=== PATIENT | male | born 1960 | race Caucasian/White ===

== ENCOUNTER 2024-06-16 21:24 | Inpatient (IN) | payer MEDICARE, MEDICAID ==
[~2024-06-16] VITALS: Ht 172.7 cm; Wt 90.9 kg
[2024-06-16 22:00] LABS: Basophils # (auto) 0.1 10 ^3/uL (0-0.2); Basophils % (auto) 0.6 % (0.0-2.0); Eosinophils # (auto) 0.1 10 ^3/uL (0-0.8); Eosinophils % (auto) 0.8 % (0.0-7.0); Hematocrit 48.9 % (41.0-53.0); Hemoglobin 16.6 g/dL (13.5-17.5); Lymphocytes # (auto) 1.7 10 ^3/uL (0.4-5.4); Lymphocytes % (auto) 19.2 % (10.0-50.0); Mean Corpuscular Hemoglobin 31.9 pg (28.0-32.0); Mean Corpuscular Hgb Conc. 33.9 g/dL (32.0-36.0); Mean Corpuscular Volume 93.9 fL (80.0-100.0); Monocytes % (auto) 11.1 % (0.0-12.0); Neutrophils # (auto) 6.2 10 ^3/uL (1.6-8.6); Neutrophils % (auto) 68.3 % (37.0-80.0); Nucleated Red Blood Cells % 0.1 %; Platelet Count (auto) 239 10^3/uL (140-450); Red Blood Cells 5.21 10^6/uL (4.5-5.90); Red Cell Distribution Width 13.6 % (11.8-14.3); White Blood Cell 9.1 10^3/uL (4.4-10.8)
[2024-06-16 22:10] LABS: Potassium 4.2 mmol/L (3.5-5.1); Sodium 141 mmol/L (136-145)
[2024-06-16 22:11] LABS: Anion Gap 9 (5-15); Calcium 9.9 mg/dL (8.7-10.4); Carbon Dioxide 23 mmol/L (20-31)
[2024-06-16 22:16] LABS: BUN/Creatinine Ratio 18.2 (10.0-20.0); Blood Urea Nitrogen 18 mg/dL (9-23)
[2024-06-16 22:19] LABS: Chloride 109 mmol/L (98-107); Glucose 121 mg/dL (74-106)
[2024-06-16] MEDS: IPRATROPIUM BROM 0.5 MG/2.5ML INH SOL NEB ONE (22:33)
[2024-06-16] MEDS: ALBUTEROL SULF 2.5 MG/0.5ML(0.5%) NEB SOLN NEB ONE (22:33)
--- NOTE | 2024-06-16 22:55 | ECG ---
[facility] Test Date: 2024-06-16 Test Time: 21:24:52 Pat Name: JARETH WELLS Department: ER Room: [address] [place] [address] Gender: M Etcher Aircraft: ER : 1960 Requested By: ELISEO WEAVER Order Number: [id number] Reading MD: Willis Quinonez Measurements Intervals [place] Rate: 106 P: 0 MD: 0 QRS: -16 QRSD: 85 T: 62 QT: 336 QTc: 447 Interpretive Statements Sinus tachycardia Borderline left axis deviation Anterior infarct, old Baseline wander in lead(s) V3,V4 Electronically Signed On 06-17-2024 10:27:05 PST by Willis Quinonez Please click the below link to view image of tracing.
--- NOTE | 2024-06-16 22:57 | DVH ---
CHEST RADIOGRAPH Indication: sob Technique: Single frontal view of the chest was obtained Comparison: None FINDINGS: Lines and Tubes: None Lungs: No focal consolidation. Pleura: No effusion. No pneumothorax. Cardiomediastinal contours: Unremarkable Bones: No acute osseous abnormality. IMPRESSION: 1. No acute cardiopulmonary disease.
[2024-06-16 23:00] VITALS: PULSE 102; RESP 16; O2SAT 96
[2024-06-16] MEDS: methylPREDNISolone SOD SUCC 125 MG/2 ML VL IV ONE (23:21)
--- NOTE | 2024-06-17 | ED.PDOC ---
SOB-HPI HPI Comments 65 year old male brought in by EMS presents to the ED with a chief complaint of shortness of breath onset today. Patient states he has been experiencing productive cough, fever, congestion for the past 2 months. He noticed shortness of breath was worse today, used inhaler, did not improve symptoms. Upon EMS arrival, O2 sat was 92%, DuoNeb treatment was given and O2 sat did not improve. He was place on 4L NC and O2 sat improved to 94%. Past medical history of Asthma. Denies chest pain, headache, dizziness, abdominal pain, nausea, vomiting, dysuria. No other symptoms or modifying factors present at this time. Chief Complaint: Shortness of Breath Time Seen by MD: 23:52 Reviewed notes: Medications, Allergies Information Source: Patient, Emergency Med Personnel Mode of Arrival: EMS Severity: Moderate Timing: Hours Duration: Since onset Context: At Rest PE Risk Factors: None History of: Asthma Prehospital treatment: Oxygen, Treatment Associated Signs and Symptoms: Fever, Cough, Nasal Congestion Radiation: No Radiation If cough with SOB: Productive Past Medical History PAST MEDICAL HISTORY: Asthma Surgical History: Denies all surgeries Family History Family History: Unknown Social History Smoker: Cigarettes Alcohol: Denies ETOH Use Drugs: Denies Drug Use Lives In: Home Constitutional: reports: fever; denies: chills, diaphoresis, fatigue, malaise, sweats, weakness, others EENTM: reports: nose congestion; denies: blurred vision, double vision, ear bleeding, ear discharge, ear drainage, ear pain, ear ringing, eye pain, eye redness, hearing loss, mouth pain, mouth swelling, nasal discharge, nose bleeding, nose pain, photophobia, tearing, throat pain, throat swelling, voice changes, others Respiratory: reports: cough, shortness of breath; denies: hemoptysis, orthopnea, SOB at rest, SOB with excertion, stridor, wheezing, others Cardiovascular: denies: chest pain, dizzy spells, diaphoresis, Dyspnea on exertion, edema, irregular heart beat, left arm pain, lightheadedness, palpitations, PND, syncope, others Gastrointestinal: denies: abdomen distended, abdominal pain, blood streaked bowels, constipated, diarrhea, dysphagia, difficulty swallowing, hematemesis, melena, nausea, poor appetite, poor fluid intake, rectal bleeding, rectal pain, vomiting, others Genitourinary: denies: burning, dysuria, flank pain, frequency, hematuria, incontinence, penile discharge, penile sore, pain, testicle pain, testicle swelling, urgency, others Neurological: denies: dizziness, fainting, headache, left sided numbness, left sided weakness, numbness, paresthesia, pre-existing deficit, right sided numbness, right sided weakness, seizure, speech problems, tingling, tremors, weakness, others Musculoskeletal: denies: back pain, gout, joint pain, joint swelling, muscle pain, muscle stiffness, neck pain, others Integumetry: denies: bruises, change in color, change in hair/nails, dryness, laceration, lesions, lumps, rash, wounds, others Allergic/Immunocompromised: denies: Difficulty Healing, Frequent Infections, Hives, Itching, others Hematologic/Lymphatic: denies: anemia, blood clots, easy bleeding, easy bruising, swollen glands, others Endocrine: denies: excessive hunger, excessive sweating, excessive thirst, excessive urination, flushing, intolerance to cold, intolerance to heat, unexplained weight gain, unexplained weight loss, others Psychiatric: denies: anxiety, bipolar disorder, depression, hopeless, panic disorder, schizophrenia, sleepless, suicidal, others All Other Systems: Reviewed and Negative Physical Exam General Appearance: Mild Distress HEENT: Other (Unremarkable) Neck: Full Range of Motion, Normal Inspection Respiratory: Chest Non-Tender, No Accessory Muscle Use, Respiratory Distress (Mild), Wheezing Cardiovascular: No Edema, No JVD, Tachycardia Breast Exam: Deferred Gastrointestinal: Non Tender, Soft Genitalia: Deferred Pelvic: Deferred Rectal: Deferred Extremities: Normal inspection, Normal range of motion, Non-tender, No pedal edema Neurologic: Alert (x4), Normal Affect, Normal Mood, Other (Moves all extremities with adequate strength and tone. No gross focal deficit.) Cerebellar Function: NOT DONE Reflexes: NOT DONE Skin: Dry, Normal Color, Warm Lymphatic: NOT DONE EKG EKG : Comments Sinus tach, rate 106, normal intervals, normal axis, possible old anteroseptal infarct, nonspecific T change. Was a procedure done? Was a procedure done?: No Differential Dx Differential Diagnosis: Asthma, Bronchitis, CHF, COPD, Dysrhythmia, Hyperventilation, Pneumonia, Pulmonary Embolism, URI X-Ray, Labs, Meds, VS Vital Signs Date Time Temp Pulse Resp B/P (MAP) Pulse Ox O2 Delivery O2 Flow Rate FiO2 06/17/24 00:00 102 27 118/64 (82) 95 06/17/24 00:00 104 06/16/24 22:33 98 Nasal Cannula* 4 36 06/16/24 22:33 18 97 Nasal Cannula* 4 36 06/16/24 22:15 111 16 108/61 (77) 93 06/16/24 21:31 98.9 108 24 157/94 (115) 94 06/16/24 21:24 106 Lab Test 06/16/24 22:40 06/16/24 21:45 Range/Units Troponin I High Sensitivity 6 5 </=54 ng/L White Blood Count 9.1 4.4-10.8 10^3/uL Red Blood Count 5.21 4.5-5.90 10^6/uL Hemoglobin 16.6 13.5-17.5 g/dL Hematocrit 48.9 41.0-53.0 % Mean Corpuscular Volume 93.9 80.0-100.0 fL Mean Corpuscular Hemoglobin 31.9 28.0-32.0 pg Mean Corpuscular Hemoglobin Concent 33.9 32.0-36.0 g/dL Red Cell Distribution Width 13.6 11.8-14.3 % Platelet Count 239 140-450 10^3/uL Mean Platelet Volume 8.2 6.9-10.8 fL Neutrophils (%) (Auto) 68.3 37.0-80.0 % Lymphocytes (%) (Auto) 19.2 10.0-50.0 % Monocytes (%) (Auto) 11.1 0.0-12.0 % Eosinophils (%) (Auto) 0.8 0.0-7.0 % Basophils (%) (Auto) 0.6 0.0-2.0 % Neutrophils # (Auto) 6.2 1.6-8.6 10 ^3/uL Lymphocytes # (Auto) 1.7 0.4-5.4 10 ^3/uL Monocytes # (Auto) 1.0 0-1.3 10 ^3/uL Eosinophils # (Auto) 0.1 0-0.8 10 ^3/uL Basophils # (Auto) 0.1 0-0.2 10 ^3/uL Nucleated Red Blood Cells 0.1 % D-Dimer, Quantitative 0.65 H 0.0-0.49 mg/L FEU Sodium Level 141 136-145 mmol/L Potassium Level 4.2 3.5-5.1 mmol/L Chloride Level 109 H 98-107 mmol/L Carbon Dioxide Level 23 20-31 mmol/L Anion Gap 9 5-15 Blood Urea Nitrogen 18 9-23 mg/dL Creatinine 0.99 0.700-1.30 mg/dL Glomerular Filtration Rate Calc 84 >90 mL/min BUN/Creatinine Ratio 18.2 10.0-20.0 Serum Glucose 121 H 74-106 mg/dL Lactic Acid Level 1.2 0.4-2.0 mmol/L Calcium Level 9.9 8.7-10.4 mg/dL B-Type Natriuretic Peptide 19.58 0-100 pg/mL Current Medications Medications (Trade) Dose Ordered Sig/Olivia Route Start Time Stop Time Status Last Admin Albuterol (Ventolin Medneb) 5 mg ONCE ONCE NEB 06/16/24 21:45 06/16/24 21:46 DC 06/16/24 22:33 Ipratropium [place] (Atrovent Medneb) 0.5 mg ONCE ONCE NEB 06/16/24 21:45 06/16/24 21:46 DC 06/16/24 22:33 Methylprednisolone Sodium Succinate (Solu Medrol) 125 mg ONCE ONCE IV 06/16/24 21:45 06/16/24 21:46 DC 06/16/24 23:21 Ketorolac Tromethamine (Toradol Injection) 30 mg ONCE ONCE IV 06/16/24 23:30 06/17/24 00:06 DC 06/17/24 00:13 [place] [id number] Ph: [phone] DIAGNOSTIC IMAGING Diagnostic Imaging Report : [id number] Signed PATIENT: JARETH WELLS ACCT: [id number] UNIT: [id number] : 03/16/1959 LOC: ER ROOM / BED: / AGE / SEX: 65 / M ADM STATUS: REG ER SERVICE 36 ORDERING PHYSICIAN: ELISEO CONTEH MD PROCEDURE(s): CXRP - CHEST PORTABLE REASON: sob ORDER NUMBER(s): [id number], ACCESSION NUMBER(s): [id number] CHEST RADIOGRAPH Indication: sob Technique: Single frontal view of the chest was obtained Comparison: None FINDINGS: Lines and Tubes: None Lungs: No focal consolidation. Pleura: No effusion. No pneumothorax. Cardiomediastinal contours: Unremarkable Bones: No acute osseous abnormality. IMPRESSION: 1. No acute cardiopulmonary disease. ATED BY: IVANA WISDOM Jr., DO DICTATED DATE/TIME: 06/16/242253 SIGNED BY: IVANA WISDOM Jr., SIGNED DATE/TIME: 06/16/242253 CC: X-Ray, Labs, Meds, VS Comment 65-year-old male with a history of asthma complaining of shortness a breath, productive cough, congestion. Vitals remarkable for oxygen saturation 92% on room air Exam remarkable for mild respiratory distress, scattered wheezing Rhythm strip independently interpreted by me: Sinus tach, rate 106, no ectopy. Chest x-ray unremarkable CBC, basic metabolic panel, BNP and troponins unremarkable for any abnormality of acute significance Influenza and COVID tests pending Patient treated with the following in the ED: Albuterol 5 mg/Atrovent 0.5 mg nebulized, Solu-Medrol 125 mg IV, Toradol 30 mg IV (for body aches) On re-evaluation, patient states difficulty breathing has improved. Oxygen saturation 96% on 2 L nasal cannula. Other vitals stable. Plan is to admit the patient for respiratory support as needed. Time of 1ST Reevaluation: 00:22 Reevaluation 1ST: Unchanged Patient Education/Counseling: Diagnosis, Treatment, Prognosis Family Education/Counseling: No Family Present Additional Information I reviewed the following notes from patient's past medical encounters: The following tests were ordered, and results were reviewed by me: TROP -x3, cbc, bnp, xy chest, bmp, EKG, Rapid influenza A&B, COVID, LA w/ reflex, blood culture Additional Information was gathered from interviewing the following independent historians: EMS I reviewed and agreed with the following test results read by other providers: XY CHEST I discussed treatment and results with medical personnel and: patient Departure 1 Departure Time of Disposition: 01:19 Impression: Primary Impression: Asthma exacerbation Qualified Codes: J45.901 - Unspecified asthma with (acute) exacerbation Additional Impression: Hypoxia Disposition: ADMITTED INPATIENT Admit to: Tele Condition: Guarded Critical Care Note Critical Care Time?: Yes (35 min-critical care time only) Critical care comment: Critical care time including multiple bedside re-evaluations, review of lab and imaging studies, and discussion of the case with the admitting provider. Patient is high risk for respiratory decompensation. Stability Stability form required: No Heart Score Heart Score: Heart Score Response (Comments) Value History N/A 0 EKG N/A 0 Age N/A 0 Risk Factors N/A 0 Troponin N/A 0 Total 0 I personally scribed for ELISEO CONTEH MD ([email or web address]) on 06/17/24 at 00:00. Electronically submitted by Shakira Jones ([email or web address]). I personally scribed for ELISEO CONTEH MD ([email or web address]) on 06/17/24 at 00:01. Electronically submitted by Shakira Jones ([email or web address]). ELISEO CONTEH MD Jun 17, 2024 00:00
[2024-06-17] MEDS: KETOROLAC TROMETH 30 MG/ML 1ML VIAL IV ONE (00:13)
[2024-06-17] MEDS ORDERED: IPRATROPIUM BROM 0.5 MG/2.5ML INH SOL NEB PRN (00:30)
[2024-06-17] MEDS ORDERED: ONDANSETRON HCL 4 MG/2 ML VIAL IV PRN (00:30)
[2024-06-17] MEDS ORDERED: ALBUTEROL SULF 2.5 MG/0.5ML(0.5%) NEB SOLN NEB PRN (00:30)
[2024-06-17] MEDS ORDERED: ACETAMINOPHEN 325 MG TAB PO PRN (00:30)
[2024-06-17] MEDS ORDERED: TEMAZEPAM 15 MG CAP PO PRN (00:30)
[2024-06-17 01:05] VITALS: BP 118/64; PULSE 103; RESP 20; TEMP 98.9; O2SAT 96
[2024-06-17 02:01] VITALS: BP 129/84; PULSE 97; RESP 20; O2SAT 91
--- NOTE | 2024-06-17 02:09 | DVHHP2 ---
History of Present Illness Reason for Visit: Shortness of breath History of Present Illness 65-year-old male presents for evaluation of shortness for breath. Patient endorses worsening shortness for breath has been ongoing for more than two weeks. He states he has in his inhaler and nebulizer at home relief of sym ptoms. He associates having a productive cough with fever congestion. Denies chest pain. No nausea or vomiting. No other acute complaints at the moment. Past Medical History Asthma Past Surgical History Denies Family History Noncontributory Smoke: <1 pack per day ALCOHOL: none Drugs: None Lives: with Family Review of Systems Review of Systems Review of systems are currently negative in [facility]. Allergies: Coded Allergies: NO KNOWN ALLERGIES (Unverified , 06/17/24) Medications Current Medications Medications Dose Ordered Sig/Olivia Route Start Time Stop Time Status Last Admin Dose Admin Fluoxetine HCl 20 mg DAILY PO 06/17/24 10:00 Topiramate 50 mg DAILY PO 06/17/24 10:00 Albuterol 2.5 mg Q6HPRN PRN NEB 06/17/24 00:30 Ipratropium [place] 0.5 mg Q6HPRN PRN NEB 06/17/24 00:30 Temazepam 15 mg QHSP PRN PO 06/17/24 00:30 Ondansetron HCl 4 mg Q4HP PRN IV 06/17/24 00:30 Acetaminophen 650 mg Q6HP PRN PO 06/17/24 00:30 Exam Vital Signs Vital Signs Date Time Temp Pulse Resp B/P (MAP) Pulse Ox O2 Delivery O2 Flow Rate FiO2 06/17/24 01:05 96 Nasal Cannula 4.0 06/17/24 01:05 98.9 103 20 118/64 28 98.9 Exam Gen: 65-year-old mild distress. Skin: Warm, dry, normal color and texture, no rash. HEENT: Normocephalic atraumatic, mucous membranes moist and pink. Neck: Cervical and supraclavicular nodes normal without enlargement, trachea is midline, thyroid gland is normal without masses. Pulmonary: Diminished breath sounds bilaterally Cardiac: Sinus tachycardia Abdomen: Soft, nontender, nondistended, bowel sounds present all 4 quadrants, no guarding, no rigidity, no organomegaly. Extremities: No cyanosis, clubbing, no edema Neuro: Cranial nerves II through XII grossly intact, normal affect and speech, no focal motor deficits. Labs/Xrays ORDERING PHYSICIAN: ELISEO CONTEH MD PROCEDURE(s): CXRP - CHEST PORTABLE REASON: sob ORDER NUMBER(s): [id number], ACCESSION NUMBER(s): [id number] CHEST RADIOGRAPH Indication: sob Technique: Single frontal view of the chest was obtained Comparison: None FINDINGS: Lines and Tubes: None Lungs: No focal consolidation. Pleura: No effusion. No pneumothorax. Cardiomediastinal contours: Unremarkable Bones: No acute osseous abnormality. IMPRESSION: 1. No acute cardiopulmonary disease. Labs Test 06/16/24 22:40 06/16/24 21:45 Range/Units Troponin I High Sensitivity 6 </=54 ng/L White Blood Count 9.1 4.4-10.8 10^3/uL Red Blood Count 5.21 4.5-5.90 10^6/uL Hemoglobin 16.6 13.5-17.5 g/dL Hematocrit 48.9 41.0-53.0 % Mean Corpuscular Volume 93.9 80.0-100.0 fL Mean Corpuscular Hemoglobin 31.9 28.0-32.0 pg Mean Corpuscular Hemoglobin Concent 33.9 32.0-36.0 g/dL Red Cell Distribution Width 13.6 11.8-14.3 % Platelet Count 239 140-450 10^3/uL Mean Platelet Volume 8.2 6.9-10.8 fL Neutrophils (%) (Auto) 68.3 37.0-80.0 % Lymphocytes (%) (Auto) 19.2 10.0-50.0 % Monocytes (%) (Auto) 11.1 0.0-12.0 % Eosinophils (%) (Auto) 0.8 0.0-7.0 % Basophils (%) (Auto) 0.6 0.0-2.0 % Neutrophils # (Auto) 6.2 1.6-8.6 10 ^3/uL Lymphocytes # (Auto) 1.7 0.4-5.4 10 ^3/uL Monocytes # (Auto) 1.0 0-1.3 10 ^3/uL Eosinophils # (Auto) 0.1 0-0.8 10 ^3/uL Basophils # (Auto) 0.1 0-0.2 10 ^3/uL Nucleated Red Blood Cells 0.1 % D-Dimer, Quantitative 0.65 H 0.0-0.49 mg/L FEU Sodium Level 141 136-145 mmol/L Potassium Level 4.2 3.5-5.1 mmol/L Chloride Level 109 H 98-107 mmol/L Carbon Dioxide Level 23 20-31 mmol/L Anion Gap 9 5-15 Blood Urea Nitrogen 18 9-23 mg/dL Creatinine 0.99 0.700-1.30 mg/dL Glomerular Filtration Rate Calc 84 >90 mL/min BUN/Creatinine Ratio 18.2 10.0-20.0 Serum Glucose 121 H 74-106 mg/dL Lactic Acid Level 1.2 0.4-2.0 mmol/L Calcium Level 9.9 8.7-10.4 mg/dL B-Type Natriuretic Peptide 19.58 0-100 pg/mL Assessment/Plan Assessment/Plan Assessment Acute on chronic hypoxic respiratory failure Asthma exacerbation Depression Admit the patient to Med surge to the hospitalist Med nebs Azithromycin/Rocephin Resume medications Continue treatment per orders. Plan discussed with: Patient My Orders Orders - GERSON AG AGACNP Procedure Category Date Status Time Rapid Influenza A&B LAB 06/17/24 Logged 00:27 Albuterol Medneb PHA 06/17/24 In Process (Ventolin Medneb) 00:30 Ipratropium Medneb PHA 06/17/24 In Process (Atrovent Medneb) 00:30 Basic Metabolic Panel LAB 06/18/24 Verified 04:00 Admit ADMIT 06/17/24 Transmitted 00:27 Temazepam (Restoril) PHA 06/17/24 In Process 00:30 Ondansetron Hcl PHA 06/17/24 In Process (Zofran) 00:30 Cardiac DIET 06/17/24 Transmitted Diet-2gna,Lofat,Lochol Breakfast Condition: Stable BARNEY 06/17/24 In Process 00:27 Acetaminophen Tablet PHA 06/17/24 In Process (Tylenol Tablet) 00:30 Bedrest With Bathroom BARNEY 06/17/24 In Process Privileg 00:27 Fluoxetine Capsule PHA 06/17/24 In Process (Prozac Capsule) 10:00 Topiramate (Topamax) PHA 06/17/24 In Process 10:00 Date of Service: Jun 17, 2024 Billing Provider: GERSON AG Common Visit Codes: [id number] INP/OBS CARE (HIGH) GERSON AG Jun 17, 2024 02:09
[2024-06-17 03:27] LABS: COVID19 ANTIGEN SOFIA FIA NEGATIVE (NEGATIVE); Rapid Influenza A Negative (Negative); Rapid Influenza B Negative (Negative)
--- NOTE | 2024-06-17 07:38 | DVHDSRES ---
Discharge Summary Date of Admission Resident Creating Document: ALONDRA SHANKAR RESIDENT Jun 17, 2024 at 00:24 Date of Discharge: Jun 17, 2024 Admitting Diagnosis Shortness of breaths Labs/Diagnostic Data: Laboratory Results Test 06/17/24 02:30 06/16/24 22:40 06/16/24 21:45 Influenza Type A Antigen Negative (Negative) Influenza Type B Antigen Negative (Negative) SARS-CoV-2 Antigen (Rapid) Negative (NEGATIVE) Troponin I High Sensitivity 6 ng/L (</=54) White Blood Count 9.1 10^3/uL (4.4-10.8) Red Blood Count 5.21 10^6/uL (4.5-5.90) Hemoglobin 16.6 g/dL (13.5-17.5) Hematocrit 48.9 % (41.0-53.0) Mean Corpuscular Volume 93.9 fL (80.0-100.0) Mean Corpuscular Hemoglobin 31.9 pg (28.0-32.0) Mean Corpuscular Hemoglobin Concent 33.9 g/dL (32.0-36.0) Red Cell Distribution Width 13.6 % (11.8-14.3) Platelet Count 239 10^3/uL (140-450) Mean Platelet Volume 8.2 fL (6.9-10.8) Neutrophils (%) (Auto) 68.3 % (37.0-80.0) Lymphocytes (%) (Auto) 19.2 % (10.0-50.0) Monocytes (%) (Auto) 11.1 % (0.0-12.0) Eosinophils (%) (Auto) 0.8 % (0.0-7.0) Basophils (%) (Auto) 0.6 % (0.0-2.0) Neutrophils # (Auto) 6.2 10 ^3/uL (1.6-8.6) Lymphocytes # (Auto) 1.7 10 ^3/uL (0.4-5.4) Monocytes # (Auto) 1.0 10 ^3/uL (0-1.3) Eosinophils # (Auto) 0.1 10 ^3/uL (0-0.8) Basophils # (Auto) 0.1 10 ^3/uL (0-0.2) Nucleated Red Blood Cells 0.1 % D-Dimer, Quantitative 0.65 mg/L FEU (0.0-0.49) Sodium Level 141 mmol/L (136-145) Potassium Level 4.2 mmol/L (3.5-5.1) Chloride Level 109 mmol/L (98-107) Carbon Dioxide Level 23 mmol/L (20-31) Anion Gap 9 (5-15) Blood Urea Nitrogen 18 mg/dL (9-23) Creatinine 0.99 mg/dL (0.700-1.30) Glomerular Filtration Rate Calc 84 mL/min (>90) BUN/Creatinine Ratio 18.2 (10.0-20.0) Serum Glucose 121 mg/dL (74-106) Lactic Acid Level 1.2 mmol/L (0.4-2.0) Calcium Level 9.9 mg/dL (8.7-10.4) B-Type Natriuretic Peptide 19.58 pg/mL (0-100) Other Laboratory Tests 06/16/24 21:45 Brief Hx & Hospital Course: 65-year-old male presents for evaluation of shortness for breath. Patient endorses worsening shortness for breath has been ongoing for more than two weeks. He states he has in his inhaler and nebulizer at home relief of symptoms. He associates having a productive cough with fever congestion. Denies chest pain. No nausea or vomiting. Chest x-ray showed no acute cardiopulmonary disease. COVID and influenza testing was negative. Patient was started on albuterol and ipratropium med nebs, azithromycin along with methylprednisolone 125 mg IV once. Patient was also given IV ketorolac 30 mg once to relieve pain. Home medication fluoxetine, topiramate were also continued. Patient left against medical advice before further evaluation and management could be completed. Condition at Discharge: Undetermined Final Diagnosis/Problems List Acute on chronic hypoxic respiratory failure due to asthma exacerbation Asthma exacerbation Depression Discharge Disposition: AMA Discharge Statement: "Patient was advised to return to the ER or call 911 if any headaches, dizziness, shortness of breath, chest pain, abdominal pain, bleeding, fevers, or worsening of medical condition. Patient was counseled about treatment plan, medications, possible side effects, patientverbalized understanding. All questions were answered to the best of my ability. This discharge took greater then 30 minutes in planning, reviewing documentation, counseling the patient, and discussing with other team members." ASSESSMENT ASSESSMENT Assessment Date of Service: Jun 17, 2024 Billing Provider: KHANG BURSN MD Common Visit Codes: [id number] DISCH DAY <30MIN ALONDRA SHANKAR RESIDENT Jun 17, 2024 07:38 KHANG BURNS MD Jun 21, 2024 21:24
[2024-06-17] MEDS ORDERED: TOPIRAMATE 25 MG TAB PO SCH (10:00)
[2024-06-17] MEDS ORDERED: AZITHROMYCIN 500MG/ 250ML 250 ML IV SCH (10:00)
[2024-06-17] MEDS ORDERED: FLUoxetine HCL 20 MG CAP PO SCH (10:00)
== END 2024-06-17 04:00 | disposition left against medical advice (07) | DRG 189 ==
LOC: EDBD 21:24 → ER 21:24 → OVERFLOW 06-17 00:24 → EDBD 06-17 00:24 → OVERFLOW 06-17 04:00
PROVIDERS: ADMIT Student in an Organized Health Care Education/Training Program; ATTEND Student in an Organized Health Care Education/Training Program
DX: J96.21 Acute and chronic respiratory failure with hypoxia (principal); J45.901 Unspecified asthma with (acute) exacerbation; F17.210 Nicotine dependence, cigarettes, uncomplicated; F32.A Depression, unspecified; Z20.822 Contact with and (suspected) exposure to COVID-19; Z53.29 Procedure and treatment not carried out because of patient's decision for other reasons
CPT/HCPCS: 36415; 71045; 80048; 83605; 83880; 84484; 85025; 85379; 87040; 87426; 87804; 93005; 94640; 99291; G0378; J1885

== ENCOUNTER 2024-07-10 04:07 | Emergency (ER) | payer MEDICARE, MEDICAID ==
[~2024-07-10] VITALS: Ht 165.1 cm; Wt 91.0 kg
[~2024-07-10 04:07] MED LIST: ALBUAER3 IN; AUG875T PO; AZIT-185 PO; BENZ100C97 PO; OFL50TS OT; PROM1SOL4 PO; RIV20T PO; RIVA10TA PO; RIVA20TA PO
--- NOTE | 2024-07-10 04:21 | ED.PDOC ---
SOB-HPI HPI Comments 64-year-old male came to ER via EMS for shortness of breath. Patient is h omeless, has history of asthma and COPD. Patient picked up at the crisis center, wherein some complaining of shortness a breath since yesterday. Patient admits of use marijuana and methamphetamines yesterday Chief Complaint: Shortness of breath Time Seen by MD: 04:20 Reviewed notes: Nurses Notes Information Source: Patient, Emergency Med Personnel Mode of Arrival: EMS Severity: Moderate Timing: Days Duration: Intermittent Context: At Rest, With Light Exertion PE Risk Factors: None History of: Asthma, COPD Prehospital treatment: Oxygen Modifying Factors: Nothing Associated Signs and Symptoms: Wheeze Quality: Tightness Past Medical History PAST MEDICAL HISTORY: Asthma, COPD Surgical History: Denies all surgeries Family History Family History: Unknown Social History Smoker: Cigarettes Alcohol: Denies ETOH Use Drugs: Marijuana, Methamphetamine Lives In: Homeless Constitutional: denies: chills, diaphoresis, fatigue, fever, malaise, sweats, weakness, others EENTM: denies: blurred vision, double vision, ear bleeding, ear discharge, ear drainage, ear pain, ear ringing, eye pain, eye redness, hearing loss, mouth pain, mouth swelling, nasal discharge, nose bleeding, nose congestion, nose pain, photophobia, tearing, throat pain, throat swelling, voice changes, others Respiratory: reports: SOB at rest, shortness of breath, wheezing; denies: cough, hemoptysis, orthopnea, SOB with excertion, stridor, others Cardiovascular: denies: chest pain, dizzy spells, diaphoresis, Dyspnea on exertion, edema, irregular heart beat, left arm pain, lightheadedness, palpitations, PND, syncope, others Gastrointestinal: denies: abdomen distended, abdominal pain, blood streaked bowels, constipated, diarrhea, dysphagia, difficulty swallowing, hematemesis, melena, nausea, poor appetite, poor fluid intake, rectal bleeding, rectal pain, vomiting, others Genitourinary: denies: burning, dysuria, flank pain, frequency, hematuria, incontinence, penile discharge, penile sore, pain, testicle pain, testicle swelling, urgency, others Neurological: denies: dizziness, fainting, headache, left sided numbness, left sided weakness, numbness, paresthesia, pre-existing deficit, right sided numbness, right sided weakness, seizure, speech problems, tingling, tremors, weakness, others Musculoskeletal: denies: back pain, gout, joint pain, joint swelling, muscle pain, muscle stiffness, neck pain, others Integumetry: denies: bruises, change in color, change in hair/nails, dryness, laceration, lesions, lumps, rash, wounds, others Allergic/Immunocompromised: denies: Difficulty Healing, Frequent Infections, Hives, Itching, others Hematologic/Lymphatic: denies: anemia, blood clots, easy bleeding, easy bruising, swollen glands, others Endocrine: denies: excessive hunger, excessive sweating, excessive thirst, excessive urination, flushing, intolerance to cold, intolerance to heat, un explained weight gain, unexplained weight loss, others Psychiatric: denies: anxiety, bipolar disorder, depression, hopeless, panic disorder, schizophrenia, sleepless, suicidal, others Physical Exam General Appearance: No Apparent Distress, Normal HEENT: Normal ENT Inspection, Pharynx Normal, TMs Normal Neck: Full Range of Motion, Non-Tender, Normal, Normal Inspection Respiratory: Chest Non-Tender, No Accessory Muscle Use, Wheezing Cardiovascular: No Edema, No JVD, No Murmur, No Gallop, Normal Peripheral Pulses, Regular Rate/Rhythm Breast Exam: Deferred Gastrointestinal: No Organomegaly, Non Tender, No Pulsatile Mass, Normal Bowel Sounds, Soft Genitalia: Deferred Pelvic: Deferred Rectal: Deferred Extremities: No calf tenderness, Normal capillary refill, Normal inspection, Normal range of motion, Non-tender, No pedal edema Musculoskeletal : Apperance: Normal Neurologic: Alert, eeg technologist II-XII nml as Tested, No Motor Deficits, Normal Affect, Normal Mood, No Sensory Deficits Cerebellar Function: Normal Reflexes: Normal Skin: Dry, Normal Color, Warm Lymphatic: No Adenopathy Was a procedure done? Was a procedure done?: No Differential Dx Differential Diagnosis: Asthma, Bronchitis, CHF, COPD, Panic Attack, Pneumonia, Respiratory Distress X-Ray, Labs, Meds, VS Vital Signs Date Time Temp Pulse Resp B/P (MAP) Pulse Ox O2 Delivery O2 Flow Rate FiO2 07/10/24 04:34 16 94 Nasal Cannula* 1 24 07/10/24 04:12 100 07/10/24 04:07 98.3 101 20 152/81 (104) 92 Lab Test 07/10/24 05:18 07/10/24 04:24 Range/Units Troponin I High Sensitivity Pending 4 </=54 ng/L White Blood Count 9.6 4.4-10.8 10^3/uL Red Blood Count 4.53 4.5-5.90 10^6/uL Hemoglobin 14.5 13.5-17.5 g/dL Hematocrit 42.0 41.0-53.0 % Mean Corpuscular Volume 92.6 80.0-100.0 fL Mean Corpuscular Hemoglobin 32.1 H 28.0-32.0 pg Mean Corpuscular Hemoglobin Concent 34.6 32.0-36.0 g/dL Red Cell Distribution Width 13.8 11.8-14.3 % Platelet Count 239 140-450 10^3/uL Mean Platelet Volume 8.4 6.9-10.8 fL Neutrophils (%) (Auto) 67.5 37.0-80.0 % Lymphocytes (%) (Auto) 21.8 10.0-50.0 % Monocytes (%) (Auto) 9.3 0.0-12.0 % Eosinophils (%) (Auto) 1.1 0.0-7.0 % Basophils (%) (Auto) 0.3 0.0-2.0 % Neutrophils # (Auto) 6.5 1.6-8.6 10 ^3/uL Lymphocytes # (Auto) 2.1 0.4-5.4 10 ^3/uL Monocytes # (Auto) 0.9 0-1.3 10 ^3/uL Eosinophils # (Auto) 0.1 0-0.8 10 ^3/uL Basophils # (Auto) 0 0-0.2 10 ^3/uL Nucleated Red Blood Cells 0.0 % Sodium Level 139 136-145 mmol/L Potassium Level 4.1 3.5-5.1 mmol/L Chloride Level 109 H 98-107 mmol/L Carbon Dioxide Level 23 20-31 mmol/L Anion Gap 7 5-15 Blood Urea Nitrogen 22 9-23 mg/dL Creatinine 1.04 0.700-1.30 mg/dL Glomerular Filtration Rate Calc 80 >90 mL/min BUN/Creatinine Ratio 21.2 H 10.0-20.0 Serum Glucose 105 74-106 mg/dL Calcium Level 9.8 8.7-10.4 mg/dL B-Type Natriuretic Peptide 17.70 0-100 pg/mL Current Medications Medications (Trade) Dose Ordered Sig/Olivia Route Start Time Stop Time Status Last Admin Albuterol (Ventolin Medneb) 5 mg ONCE ONCE NEB 07/10/24 04:15 07/10/24 04:17 DC 07/10/24 04:32 Azithromycin (Zithromax Tablet) 500 mg ONCE ONCE PO 07/10/24 04:15 07/10/24 04:17 DC 07/10/24 04:42 Time of 1ST Reevaluation: 04:17 Reevaluation 1ST: Unchanged Patient Education/Counseling: Diagnosis, Treatment Family Education/Counseling: No Family Present Departure 1 Departure Time of Disposition: 05:49 (Patient presented with acute shortness of breath concerning for acute on chronic COPD Exacerbation, Pneumonia, ACS, CHF, Pneumothorax. Less likely PE, Dissection. Data: 1. I ordered and reviewed the result of at least 3 labs including a CBC, BMP, and Troponin. 2. I independently interpreted the following tests: Chest X-ray shows benign chest .Risk:This patient has a high risk of morbidity due to further diagnostic testing or treatment and may suffer from respiratory or cardiac etiology . Workup reveals a likely COPD Exacerbation and patient should be admitted for further workup. and possible expert consultation.) Impression: Primary Impression: Acute exacerbation of chronic obstructive pulmonary disease (COPD) Disposition: 09 ADMITTED INPATIENT Admit to: Med Surg Condition: Serious Critical Care Note Critical Care Time?: No Stability Stability form required: No Heart Score Heart Score: Heart Score Response (Comments) Value History N/A 0 EKG N/A 0 Age N/A 0 Risk Factors N/A 0 Troponin N/A 0 Total 0 I personally scribed for FRANCES VARGAS MD ([email or web address]) on 07/10/24 at 04:21. Electronically submitted by Jorge Levi ([email or web address]). FRANCES VARGAS MD Jul 10, 2024 04:21
[2024-07-10] MEDS: ALBUTEROL SULF 2.5 MG/0.5ML(0.5%) NEB SOLN NEB ONE (04:32)
[2024-07-10] MEDS: AZITHROMYCIN 250 MG TAB PO ONE (04:42)
[2024-07-10] MEDS: IPRATROPIUM BROM 0.5 MG/2.5ML INH SOL NEB ONE (04:43)
[2024-07-10 04:50] VITALS: BP 144/69; PULSE 88; RESP 19; TEMP 98; O2SAT 95
[2024-07-10 05:04] LABS: Basophils # (auto) 0 10 ^3/uL (0-0.2); Basophils % (auto) 0.3 % (0.0-2.0); Eosinophils # (auto) 0.1 10 ^3/uL (0-0.8); Eosinophils % (auto) 1.1 % (0.0-7.0); Hemoglobin 14.5 g/dL (13.5-17.5); Lymphocytes # (auto) 2.1 10 ^3/uL (0.4-5.4); Lymphocytes % (auto) 21.8 % (10.0-50.0); Mean Corpuscular Hemoglobin 32.1 pg (28.0-32.0); Mean Corpuscular Hgb Conc. 34.6 g/dL (32.0-36.0); Mean Corpuscular Volume 92.6 fL (80.0-100.0); Monocytes # (auto) 0.9 10 ^3/uL (0-1.3); Monocytes % (auto) 9.3 % (0.0-12.0); Neutrophils # (auto) 6.5 10 ^3/uL (1.6-8.6); Neutrophils % (auto) 67.5 % (37.0-80.0); Platelet Count (auto) 239 10^3/uL (140-450); Red Blood Cells 4.53 10^6/uL (4.5-5.90); Red Cell Distribution Width 13.8 % (11.8-14.3); White Blood Cell 9.6 10^3/uL (4.4-10.8)
[2024-07-10 05:12] LABS: Potassium 4.1 mmol/L (3.5-5.1); Sodium 139 mmol/L (136-145)
[2024-07-10 05:13] LABS: Anion Gap 7 (5-15); Calcium 9.8 mg/dL (8.7-10.4); Carbon Dioxide 23 mmol/L (20-31)
[2024-07-10 05:18] LABS: BUN/Creatinine Ratio 21.2 (10.0-20.0); Blood Urea Nitrogen 22 mg/dL (9-23); Chloride 109 mmol/L (98-107); Glucose 105 mg/dL (74-106)
--- NOTE | 2024-07-10 05:41 | DVH ---
EXAM: XY CHEST PORTABLE Indication: sob Technique: Single frontal view of the chest was obtained Comparison: XY CHEST PORTABLE on DOS: 06/16/24 FINDINGS: Lines and Tubes: None Lungs: No focal consolidation. Pleura: No effusion. No pneumothorax. Cardiomediastinal contours: Unremarkable Bones: No acute osseous abnormality. IMPRESSION: No acute cardiopulmonary disease.
--- NOTE | 2024-07-10 06:23 | ECG ---
[facility] Test Date: 2024-07-10 Test Time: 04:12:21 Pat Name: JARETH WELLS Department: ER Room: Gender: M Oven Tender: FINN : 1960 Requested By: EMERGENCY EMERGENCY Order Number: [id number] Reading MD: Measurements Intervals [place] Rate: 100 P: 20 ME: 144 QRS: -20 QRSD: 88 T: 34 QT: 344 QTc: 444 Interpretive Statements Sinus tachycardia Probable left atrial enlargement Borderline left axis deviation Probable anteroseptal infarct, old Please click the below link to view image of tracing.
== END 2024-07-10 07:30 | disposition left against medical advice (07) ==
LOC: EDUNIT# 04:07 → EDBD 04:07 → ER 04:07
DX: J44.1 Chronic obstructive pulmonary disease with (acute) exacerbation (principal); F17.210 Nicotine dependence, cigarettes, uncomplicated; F15.90 Other stimulant use, unspecified, uncomplicated; Z59.00 Homelessness unspecified
CPT/HCPCS: 36415; 71045; 80048; 83880; 84484; 85025; 93005; 94640

== ENCOUNTER 2024-07-12 20:07 | Emergency (ER) | payer MEDICARE, MEDICAID ==
[~2024-07-12] VITALS: Ht 165.1 cm; Wt 86.1 kg
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
[2024-07-12 20:57] LABS: Urine Bacteria None Seen /hpf (None Seen)
--- NOTE | 2024-07-12 21:05 | DVH ---
CT HEAD WITHOUT CONTRAST Indication: head trauma EXAM DATE: 07/12/2024 08:37 PM COMPARISON: None TECHNIQUE: CT of the head without intravenous contrast. RADIATION DOSE: CTDIvol: 54.3 mGy, DLP: 979.17 mGy*cm FINDINGS: There is no intracranial hemorrhage. There is no extra-axial fluid, mass, mass effect or midline shif t. The ventricles are midline and normal in size. Basilar cisterns are patent. Calle-white differentia tion is maintained. The mastoids are well pneumatized. Bilateral maxillary sinus, ethmoid, frontal sinus disease.. Imaged portion of the orbits are unremarkable. IMPRESSION: 1. No intracranial hemorrhage or mass effect. 2. Paranasal sinus disease. 3. HS:Y
[2024-07-12 21:19] LABS: Basophils # (auto) 0 10 ^3/uL (0-0.2); Basophils % (auto) 0.2 % (0.0-2.0); Eosinophils # (auto) 0 10 ^3/uL (0-0.8); Eosinophils % (auto) 0.4 % (0.0-7.0); Lymphocytes # (auto) 1.7 10 ^3/uL (0.4-5.4); Lymphocytes % (auto) 17.7 % (10.0-50.0); Mean Corpuscular Hemoglobin 31.5 pg (28.0-32.0); Mean Corpuscular Volume 92.4 fL (80.0-100.0); Monocytes # (auto) 0.8 10 ^3/uL (0-1.3); Monocytes % (auto) 7.9 % (0.0-12.0); Neutrophils # (auto) 7.3 10 ^3/uL (1.6-8.6); Neutrophils % (auto) 73.8 % (37.0-80.0); Platelet Count (auto) 258 10^3/uL (140-450); Red Blood Cells 4.76 10^6/uL (4.5-5.90); Red Cell Distribution Width 13.7 % (11.8-14.3); White Blood Cell 9.9 10^3/uL (4.4-10.8)
[2024-07-12 21:20] LABS: Alanine Aminotransferase 26 U/L (7-40); Alkaline Phosphatase 94 U/L (46-116); Anion Gap 10 (5-15); Aspartate Aminotransferase 20 U/L (13-40); BUN/Creatinine Ratio 20.2 (10.0-20.0); Blood Urea Nitrogen 20 mg/dL (9-23); Calcium 9.9 mg/dL (8.7-10.4); Carbon Dioxide 21 mmol/L (20-31); Glucose 102 mg/dL (74-106); Sodium 141 mmol/L (136-145)
[2024-07-12 21:21] LABS: Bilirubin, Total 0.5 mg/dL (0.2-1.0)
[2024-07-12 21:22] LABS: Albumin 4.9 g/dL (3.2-4.8); Blood Alcohol < 3.0 mg/dL (<10); Chloride 110 mmol/L (98-107)
[2024-07-12 21:23] LABS: Urine Blood Negative /uL (Negative); Urine Clarity Clear (Clear); Urine Color Yellow (Yellow); Urine Mucus FEW (None Seen); Urine Protein, UAD TRACE (Negative); Urine Specific Gravity 1.035 (1.001-1.035); Urine Squamous Epithelial Cell None Seen /hpf (<5); Urine Urobilinogen 2 mg/dL (Negative); Urine WBC 1 /HPF (0-3); Urine pH 5.5 (5.0-9.0)
[2024-07-12 21:23] LABS: Acetaminophen < 2.0 UG/ML (10.0-20.0); Salicylate < 3.0 mg/dL (-30)
[2024-07-12] MEDS: ACETAMINOPHEN 325 MG TAB PO ONE (22:06)
[2024-07-12] MEDS: OLANZapine 5 MG TAB PO ONE (22:06)
[2024-07-12 22:14] LABS: Amphetamine Screen, Urine Pos (NEGATIVE); Barbiturate Scree,Urine Neg (NEGATIVE); Benzodiazephine Screen, Urine Neg (NEGATIVE); Cannabinoid Screen, Urine Neg (NEGATIVE); Cocaine Screen, Urine Neg (NEGATIVE); Opiate Scree,Urine Neg (NEGATIVE); Phencyclidine Screen, Urine Neg (NEGATIVE)
[2024-07-12] MEDS ORDERED: OLAN10TA40 PO (23:32)
[2024-07-12] MEDS ORDERED: AUG875T PO (23:32)
[2024-07-12 23:58] VITALS: BP 136/84; PULSE 80; RESP 18; TEMP 97.8; O2SAT 97
== END 2024-07-13 00:06 | disposition home or self-care (01) ==
LOC: ER 20:07
DX: R51.9 Headache, unspecified (principal); R53.83 Other fatigue; F15.10 Other stimulant abuse, uncomplicated; F31.9 Bipolar disorder, unspecified; F17.210 Nicotine dependence, cigarettes, uncomplicated; J45.909 Unspecified asthma, uncomplicated; Z79.899 Other long term (current) drug therapy; W18.39XA Other fall on same level, initial encounter; Y93.89 Activity, other specified; Y92.89 Other specified places as the place of occurrence of the external cause; Y99.8 Other external cause status
CPT/HCPCS: 36415; 70450; 80053; 80307; 80320; 80329; 81001; 85025

== ENCOUNTER 2024-07-18 03:34 | Emergency (ER) | payer MEDICARE, MEDICAID ==
[~2024-07-18] VITALS: Ht 165.1 cm; Wt 90.9 kg
[~2024-07-18 03:34] MED LIST changes: +OLAN10TA40 PO
[2024-07-18 04:14] VITALS: BP 144/98; PULSE 81; RESP 18; TEMP 98.1; O2SAT 99
--- NOTE | 2024-07-18 04:23 | ED.PDOC ---
Back pain HPI HPI Comments PT BIBA d/t back pain x20 years. Patient complaining of acute on chroniic low back pain. Pt states he was walking, and walked much more than normal. Denies recent injury. Pt A&O x4. VSS. Ambulatory. Denies numbness, weakness, saddle anesthesia, injury, fever, chills, loss of bowel or bladder control. Chief Complaint: Back Pain Time Seen by MD: 03:56 Reviewed Notes: Nurses Notes, Medications, Allergies Allergies: Coded Allergies: NO KNOWN ALLERGIES (Unverified , 06/17/24) Home Meds Active Scripts Amoxicillin & Pot Clavulanate (AUGMENTIN TABLET) 875 Mg Tb, 875 MG PO BID, #14 TAB Prov:MONA ZUNIGA MD 07/12/24 Olanzapine (OLANZAPINE ODT) 10 Mg Tab, 10 MG PO DAILY, #30 TAB Prov:MONA ZUNIGA MD 07/12/24 Benzonatate (Benzonatate) 100 Mg Cap, 100 MG PO TID for 10 Days, #30 CAP 0 Refills Prov:KANE YOUSIF NP 06/30/23 Promethazine-Dm (Promethazine Dm 6.25-15 mg/5Ml) 1 Kymberly Kymberly, 5 ML PO TIDP PRN for 10 Days, #150 ML 0 Refills Prov:KANE YOUSIF NP 06/30/23 Azithromycin (ZITHROMAX TABLET) 250 Mg Tb, 250 MG PO DAILY for 5 Days, #6 TAB 0 Refills Take 2 tablets day one then 1 tablet daily Prov:KANE YOUSIF NP 06/30/23 Rivaroxaban (XARELTO) 10 Mg Tab, 1 TAB PO DAILY, #30 TAB 0 Refills Prov:CRYSTAL SCHNEIDER 06/25/23 Ofloxacin (Otic) (FLOXIN OTIC) [address], 5 DROP OT BID for 10 Days, #10 ML Prov:MARY BAZZIA Q ENTREPRENEUR 05/03/23 Rivaroxaban (Xarelto Tablet) 20 Mg Tb, 1 TAB PO DAILY for 7 Days, #7 TAB Prov:MARY BAZZIA Q ENTREPRENEUR 05/03/23 Amoxicillin & Pot Clavulanate (AUGMENTIN TABLET) 875 Mg Tb, 1 TAB PO BID for 10 Days, #20 TAB Prov:ROSE MARYNORALDA Q ENTREPRENEUR 05/03/23 Rivaroxaban (XARELTO) 20 Mg Tab, 1 TAB PO DAILY, #30 TAB 11 Refills Prov:FRANCES VILLAGOMEZ DO 11/04/21 Reported Medications Albuterol Sulfate (VENTOLIN MDI) 90 Mcg Ih, 90 MCG IN, INH 04/25/19 Information Source: Patient Mode of Arrival: EMS Past Medical History PAST MEDICAL HISTORY: Asthma, Schizophrenia Past Medical History (Other): BIPOLAR CHRONIC BACK PAIN Family History Family History: Unknown Social History Smoker: Cigarettes Alcohol: Denies ETOH Use Drugs: Marijuana, Methamphetamine Lives In: Homeless Constitutional: denies: chills, diaphoresis, fatigue, fever, malaise, sweats, weakness, others EENTM: denies: blurred vision, double vision, ear bleeding, ear discharge, ear drainage, ear pain, ear ringing, eye pain, eye redness, hearing loss, mouth pain, mouth swelling, nasal discharge, nose bleeding, nose congestion, nose pain, photophobia, tearing, throat pain, throat swelling, voice changes, others Respiratory: denies: cough, hemoptysis, orthopnea, SOB at rest, shortness of breath, SOB with excertion, stridor, wheezing, others Cardiovascular: denies: chest pain, dizzy spells, diaphoresis, Dyspnea on exertion, edema, irregular heart beat, left arm pain, lightheadedness, palpitations, PND, syncope, others Gastrointestinal: denies: abdomen distended, abdominal pain, blood streaked bowels, constipated, diarrhea, dysphagia, difficulty swallowing, hematemesis, melena, nausea, poor appetite, poor fluid intake, rectal bleeding, rectal pain, vomiting, others Genitourinary: denies: burning, dysuria, flank pain, frequency, hematuria, incontinence, penile discharge, penile sore, pain, testicle pain, testicle swell ing, urgency, others Neurological: denies: dizziness, fainting, headache, left sided numbness, left sided weakness, numbness, paresthesia, pre-existing deficit, right sided numbness, right sided weakness, seizure, speech problems, tingling, tremors, weakness, others Musculoskeletal: reports: back pain; denies: gout, joint pain, joint swelling, muscle pain, muscle stiffness, neck pain, others Integumetry: denies: bruises, change in color, change in hair/nails, dryness, laceration, lesions, lumps, rash, wounds, others Allergic/Immunocompromised: denies: Difficulty Healing, Frequent Infections, Hives, Itching, others Hematologic/Lymphatic: denies: anemia, blood clots, easy bleeding, easy bruising, swollen glands, others Endocrine: denies: excessive hunger, excessive sweating, excessive thirst, excessive urination, flushing, intolerance to cold, intolerance to heat, unexplained weight gain, unexplained weight loss, others Psychiatric: denies: anxiety, bipolar disorder, depression, hopeless, panic disorder, schizophrenia, sleepless, suicidal, others Physical Exam General Appearance: No Apparent Distress, Normal HEENT: Pharynx Normal Neck: Full Range of Motion, Non-Tender Respiratory: Lungs Clear, No Respiratory Distress, Normal Breath Sounds Cardiovascular: No Murmur, Normal Peripheral Pulses, Regular Rate/Rhythm Breast Exam: Deferred Gastrointestinal: Non Tender, Soft Genitalia: Deferred Pelvic: Deferred Rectal: Deferred Extremities: Normal capillary refill, Normal inspection, Normal range of motion, Non-tender, No pedal edema Musculoskeletal : Location: Bilateral Extremity Location: Back (Moderate tenderness palpated over L1 through L5 paraspinal muscles bilateral with noted spasms lumbar spine without step-offs crepitus, lesions, abrasions, lacerations. Strength sensory motion intact bilateral lower extremities. Negative straight leg raise bilateral positive pedal pulses.) Apperance: Normal Neurologic: Alert, valuation consultant II-XII nml as Tested, No Motor Deficits, Normal Affect, Normal Mood, No Sensory Deficits Cerebellar Function: Normal Reflexes: Normal Skin: Dry, Normal Color, Warm Lymphatic: No Adenopathy Was a procedure done? Was a procedure done?: No Back Pain Differential Dx Differential Diagnosis: Fracture, Musculoskeletal Pain X-Ray, Labs, Meds, VS Vital Signs Date Time Temp Pulse Resp B/P (MAP) Pulse Ox O2 Delivery O2 Flow Rate FiO2 07/18/24 04:14 81 18 99 Room Air 07/18/24 04:14 98.1 81 18 144/98 (113) 99 98.1 07/18/24 03:39 98.1 81 18 144/98 (113) 99 X-Ray, Labs, Meds, VS Comment Patient given Toradol 60 mg IM and Decadron 10 mg IM reports improvement in pain and function requesting discharge at this time. Acute on chronic low back pain advised patient to follow up with his PCP consider referral to pain management consider epidural injections or abrasions or chronic pain medication advised to rest increase p.o. fluids with electrolytes follow up with your PCP in 2-3 days as necessary ER return precautions given patient indicates understanding agrees with discharge plan of care. Time of 1ST Reevaluation: 04:26 Reevaluation 1ST: Improved Patient Education/Counseling: Diagnosis, Treatment, Prognosis, Need For Follow Up Family Education/Counseling: No Family Present Departure 1 Departure Time of Disposition: 04:26 Impression: Primary Impression: Lumbar sprain Qualified Codes: S33.5XXA - Sprain of ligaments of lumbar spine, initial encounter Additional Impressions: Lumbar radiculopathy Musculoskeletal pain Disposition: HOME / SELF CARE / HOMELESS Condition: Stable Discharged With: Self Critical Care Note Critical Care Time?: No Stability Stability form required: ANTONY Ferraro Jul 18, 2024 04:23
[2024-07-18] MEDS: KETOROLAC TROMETH 60MG/2ML VIAL IM ONE (04:37)
[2024-07-18] MEDS: DexAMETHasone SOD PHOS 10MG/1ML VIAL INJ IM ONE (04:38)
== END 2024-07-18 05:01 | disposition home or self-care (01) ==
LOC: ER 03:34 → EDUNIT# 03:34 → EDBD 03:34 → ER 04:42
DX: S33.5XXA Sprain of ligaments of lumbar spine, initial encounter (principal); M54.16 Radiculopathy, lumbar region; J45.909 Unspecified asthma, uncomplicated; F17.210 Nicotine dependence, cigarettes, uncomplicated; F12.90 Cannabis use, unspecified, uncomplicated; F15.90 Other stimulant use, unspecified, uncomplicated; Z79.899 Other long term (current) drug therapy; Z59.00 Homelessness unspecified
CPT/HCPCS: 96372; 99284; J1100; J1885